=== PATIENT | female | born 1985 | race Caucasian/White ===

== ENCOUNTER 2018-12-29 19:49 | Emergency (ER) | payer MEDICAID ==
[~2018-12-29] VITALS: Ht 162.6 cm; Wt 68.0 kg
[2018-12-30 00:49] LABS: CLARITY URINE CLEAR (CLEAR); COLOR URINE YELLOW (YELLOW); KETONES URINE NEGATIVE (NEGATIVE); LEUKOCYTE ESTERASE URINE TRACE (NEGATIVE); NITRITE URINE POSITIVE (NEGATIVE); OCCULT BLOOD URINE 3+ (NEGATIVE); PROTEIN URINE TRACE (NEGATIVE); SPECIFIC GRAVITY URINE 1.017 (1.005-1.030); UROBILINOGEN URINE 0.2 E.U./dL (0.2-1.0)
[2018-12-30 01:32] LABS: CHLORIDE 107 mEq/L (98-107)
[2018-12-30 01:35] LABS: BASOPHILS % 0.6 % (0.0-2.0); EOSINOPHILS % 8.3 % (0.0-5.0); HEMATOCRIT. 31.4 % (36.0-48.0); HEMOGLOBIN. 10.5 g/dL (12.0-16.0); LYMPHOCYTES % 35.8 % (20.0-50.0); MEAN CORPUSCULAR HEMOGLOBIN 31.7 pg (28.0-32.0); MEAN CORPUSCULAR VOLUME 95.2 fL (81.0-99.0); MEAN PLATELET VOLUME 8.2 fl (7.4-10.4); MONOCYTES % 4.7 % (2.0-8.0); NEUTROPHILS % 50.6 % (40.0-76.0); PLATELET 201 x1000/uL (130-400); RED BLOOD CELL COUNT 3.29 mill/uL (4.2-5.4); RED CELL DISTRIBUTION WIDTH 13.8 % (11.6-14.6)
[2018-12-30 01:38] LABS: HCG SCREEN POSITIVE
[2018-12-30 01:54] LABS: B-HCG QUANTITATIVE 4332 mIU/mL (<3)
[2018-12-30 05:38] VITALS: BP 101/62
== END 2018-12-30 05:52 | disposition home or self-care (01) ==
LOC: ER 19:49 → EDBD 19:49 → ER 12-30 05:52
DX: O46.91 Antepartum hemorrhage, unspecified, first trimester (principal); O23.31 Infections of other parts of urinary tract in pregnancy, first trimester; Z98.890 Other specified postprocedural states; Z3A.00 Weeks of gestation of pregnancy not specified
CPT/HCPCS: 36415; 76801; 80048; 81025; 84702; 84703; 86850; 86900; 99284